=== PATIENT | male | born 1950 | race Caucasian/White ===

== ENCOUNTER 2016-12-30 07:37 | Emergency (ER) | payer BC, MEDICARE ==
[~2016-12-30] VITALS: Ht 177.8 cm; Wt 75.0 kg
[2016-12-30 07:41] VITALS: BP 134/85; PULSE 80; RESP 16; TEMP 97.5; O2SAT 99
[2016-12-30] MEDS ORDERED: ATOR20TA15 PO (07:53)
--- NOTE | 2016-12-30 08:14 | PD ---
HPI Chief Complaint: Abdominal Pain Time Seen by Provider: 07:54 Travel History International Travel<30 days: No Contact w/Intl Traveler<30days: No Traveled to known affect area: No History of Present Illness HPI 66-year-old male presents with left lower quadrant abdominal pain that started acutely at 3:19 AM. He states he was feeling fine before this and it awoke him out of his sleep. He states that he had a kidney stone multiple years ago but with that he had a couple mild episodes of pain and was able to pass it. He states that this one is more constant and has not gone away. Quality pain is comes in waves. Severity is moderate. He denies other concurrent complaints. PFSH Past Medical History High Cholesterol: Yes Kidney Stones: Yes Influenza Vaccination: Yes Past Surgical History Joint Replacement: Yes (bilateral knees, right hip) Social History Alcohol Use: Yes (beer occasional) Tobacco Use: No Substance Use: No Allergies-Medications (Allergen,Severity, Reaction): Coded Allergies: Codeine (Verified Allergy, Severe, Dizziness, 12/30/16) Reported Meds & Prescriptions Reported Meds & Active Scripts Active Reported Atorvastatin (Atorvastatin Calcium) 20 Mg Tab 20 Mg PO DAILY Review of Systems Except as stated in HPI: all other systems reviewed are Neg Physical Exam Narrative GENERAL: Well-nourished, well-developed patient. SKIN: Warm and dry. HEAD: Normocephalic and atraumatic. EYES: No injection or drainage. ENT: No nasal drainage noted. NECK: Supple, trachea midline. CARDIOVASCULAR: Regular rate and rhythm RESPIRATORY: No increased effort. No accessory muscle use. GASTROINTESTINAL: Abdomen soft, non-tender, nondistended. NEUROLOGICAL: Awake and alert. Motor and sensory grossly within normal limits. Normal speech. Data Data Last Documented VS Vital Signs Date Time Temp Pulse Resp B/P Pulse Ox O2 Delivery O2 Flow Rate FiO2 12/30/16 07:41 97.5 80 16 134/85 99 Room Air Orders Complete Blood Count With Diff (12/30/16 07:54) Comprehensive Metabolic Panel (12/30/16 07:54) Urinalysis - C+S If Indicated (12/30/16 07:54) Lipase (12/30/16 07:54) Iv Access Insert/Monitor (12/30/16 07:54) Ct Abd/Pel W/O Iv Contrast (12/30/16 ) Ondansetron Inj (Zofran Inj) (12/30/16 08:15) Ketorolac Inj (Toradol Inj) (12/30/16 08:15) Sodium Chlor 0.9% 1000 Ml Inj (Ns 1000 M (12/30/16 08:15) Labs Laboratory Tests Test 12/30/16 12/30/16 08:05 08:12 Urine Color YELLOW Urine Turbidity HAZY Urine pH 7.0 Urine Specific [place] 1.021 Urine Protein NEG mg/dL Urine Glucose (UA) NEG mg/dL Urine Ketones NEG mg/dL Urine Occult Blood NEG Urine Nitrite NEG Urine Bilirubin NEG Urine Urobilinogen LESS THAN 2.0 MG/DL Urine Leukocyte Esterase NEG Urine RBC LESS THAN 1 /hpf Urine WBC 4 /hpf Urine Amorphous Sediment FEW Urine Bacteria RARE /hpf Microscopic Urinalysis Comment CULT NOT INDICATED White Blood Count 8.2 TH/MM3 Red Blood Count 4.98 MIL/MM3 Hemoglobin 14.5 GM/DL Hematocrit 42.9 % Mean Corpuscular Volume 86.1 FL Mean Corpuscular Hemoglobin 29.0 PG Mean Corpuscular Hemoglobin 33.7 % Concent Red Cell Distribution Width 15.1 % Platelet Count 331 TH/MM3 Mean Platelet Volume 6.9 FL Neutrophils (%) (Auto) 77.5 % Lymphocytes (%) (Auto) 14.6 % Monocytes (%) (Auto) 6.9 % Eosinophils (%) (Auto) 0.6 % Basophils (%) (Auto) 0.4 % Neutrophils # (Auto) 6.3 TH/MM3 Lymphocytes # (Auto) 1.2 TH/MM3 Monocytes # (Auto) 0.6 TH/MM3 Eosinophils # (Auto) 0.0 TH/MM3 Basophils # (Auto) 0.0 TH/MM3 CBC Comment DIFF FINAL Differential Comment Sodium Level 140 MEQ/L Potassium Level 4.8 MEQ/L Chloride Level 105 MEQ/L Carbon Dioxide Level 29.6 MEQ/L Anion Gap 5 MEQ/L Blood Urea Nitrogen 23 MG/DL Creatinine 1.03 MG/DL Estimat Glomerular Filtration 72 ML/MIN Rate Random Glucose 118 MG/DL Calcium Level 9.4 MG/DL Total Bilirubin 0.3 MG/DL Aspartate Amino Transf 19 U/L (AST/SGOT) Alanine Aminotransferase 22 U/L (ALT/SGPT) Alkaline Phosphatase 104 U/L Total Protein 8.1 GM/DL Albumin 3.8 GM/DL Lipase 151 U/L MDM Medical Decision Making Medical Screen Exam Complete: Yes Emergency Medical Condition: Yes Medical Record Reviewed: Yes (past history confirmed) Interpretation(s) CBC & BMP Diagram 12/30/16 08:12 Last 24 hours Impressions Abdomen/Pelvis CT 12/30/16 0000 Signed Impressions: Service Date/Time: Friday, December 30, 2016 08:21 - CONCLUSION: No acute disease. Left renal calculus. Atherosclerosis. Right renal cyst. Lyle Boss MD Differential Diagnosis Kidney stone, pancreatitis, diverticulitis, musculoskeletal Narrative Course Will check blood work, urinalysis, CT scan and dose with IV fluids, Toradol, Zofran and reevaluate ed workup no acute, very lengthy discussion with patient about follow-up care. He states he will call his primary care physician [place] and while he is waiting for that appointment see someone here locally to rule out other nonemergent conditions for his pain. Patient denies any new complaints, Patient happy with care, all questions answered. Patient knows that follow up is incumbent on them and to return to the emergency room immediately if new or worsening symptoms develop. Patient given strict return precautions, vitals reviewed and are normal, agrees to further workup as an outpatient. Diagnosis Primary Impression: Abdominal pain Qualified Code: R10.32 - Left lower quadrant pain Patient Instructions: General Instructions Additional Instructions: tylenol as needed, follow with primary this week, return with any emergent need Med/Other Pt SpecificInfo: No Change to Meds Disposition: 01 DISCHARGE HOME Condition: Stable Lorraine Henderson MD Dec 30, 2016 08:14 Lorraine Henderson MD Dec 30, 2016 08:14
[2016-12-30] MEDS ORDERED: ONDANSETRON HCL 4 MG/2 ML VIAL IV PUSH ONE (08:15)
[2016-12-30] MEDS ORDERED: SODIUM CHLOR 0.9% 1000 ML INJ 1,000 ML IV ONE (08:15)
[2016-12-30] MEDS ORDERED: KETOROLAC TROMETHAMINE 30 MG/ML (IVP) VIAL IV PUSH ONE (08:15)
[2016-12-30 08:26] LABS: AUTOMATED NEUTROPHIL # 6.3 TH/MM3 (1.8-7.7); BASOPHIL % 0.4 % (0.0-2.0); EOSINOPHIL % 0.6 % (0.0-4.0); HEMATOCRIT 42.9 % (39.0-51.0); HEMO FLAGS DIFF FINAL; LYMPH % 14.6 % (9.0-44.0); LYMPHOCYTE # 1.2 TH/MM3 (1.0-4.8); MEAN CELL VOLUME 86.1 FL (80.0-100.0); MEAN CORPUSCULAR HGB CONC 33.7 % (32.0-36.0); MONO % 6.9 % (0.0-8.0); NEUT % 77.5 % (16.0-70.0); PLATELET COUNT 331 TH/MM3 (150-450); RED BLOOD COUNT 4.98 MIL/MM3 (4.50-5.90); RED CELL DISTRIBUTION WIDTH 15.1 % (11.6-17.2); WHITE BLOOD COUNT 8.2 TH/MM3 (4.0-11.0)
[2016-12-30 08:31] LABS: BACTERIA, URINE RARE /hpf; BLOOD, URINE NEG (NEG); GLUCOSE,URINE NEG (NEG); KETONE, URINE NEG (NEG); NITRITE,URINE NEG (NEG); URINE COLOR YELLOW (YELLW/STRAW)
[2016-12-30 08:38] LABS: COMMENT (UR) CULT NOT INDICATED; CULTURE IF INDICATED CULT NOT INDICATED
[2016-12-30 08:43] LABS: ANION GAP 5 MEQ/L (5-15); AST (GOT) 19 U/L (15-37); BICARBONATE 29.6 MEQ/L (21.0-32.0); BLOOD UREA NITROGEN 23 MG/DL (7-18); CHLORIDE 105 MEQ/L (98-107); GLOMERULAR FILTRATION RATE 72 ML/MIN (>89); POTASSIUM 4.8 MEQ/L (3.5-5.1); SODIUM (NA) 140 MEQ/L (136-145)
[2016-12-30 08:46] LABS: ALKALINE PHOSPHATASE 104 U/L (45-117); ALT (GPT) 22 U/L (12-78); TOTAL BILIRUBIN ADULT 0.3 MG/DL (0.2-1.0)
--- NOTE | 2016-12-30 09:15 | RADRPT ---
EXAM DATE/TIME: 12/30/2016 08:21 [facility] COMPARISON: No previous studies available for comparison. INDICATIONS : Left lower quadrant pain, nausea. ORAL CONTRAST: No oral contrast ingested. RADIATION DOSE: 13.35 CTDIvol (mGy) MEDICAL HISTORY : Renal calculi. SURGICAL HISTORY : Right total hip replacement. ENCOUNTER: Initial ACUITY: 1 day PAIN SCALE: 5/10 LOCATION: Left lower quadrant TECHNIQUE: Volumetric scanning of the abdomen and pelvis was performed. Using automated exposure control and ad justment of the mA and/or kV according to patient size, radiation dose was kept as low as reasonably achievable to obtain optimal diagnostic quality images. FINDINGS: There are calcified granulomas in the spleen. Liver, gallbladder, adrenal glands, stomach unremarkabl e. There is a simple exophytic cyst at the lower pole of the right kidney measuring 2.1 cm. There is a nonobstructing calculus at the mid to lower pole of left kidney measuring 4 mm on image 46. There i s no hydronephrosis. Right total hip arthroplasty is noted with associated streak artifact. Visualize d portions of the urinary bladder, seminal vesicles are unremarkable. Prostatic calcifications are no joe. There is no evidence of bowel obstruction. There is no adenopathy or aneurysm. No inflammatory c hanges are seen. Atherosclerotic calcifications of the aorta and iliac vessels are noted. There is se beatrice multilevel degenerative disc disease of the lumbar spine with mild levoscoliosis. Lung bases are clear. CONCLUSION: No acute disease. Left renal calculus. Atherosclerosis. Right renal cyst. Lyle Boss MD on December 30, 2016 at 9:11 Board Certified Radiologist. This report was verified electronically.
== END 2016-12-30 10:23 | disposition home or self-care (01) ==
LOC: NEPC 07:37
DX: R10.32 Left lower quadrant pain (principal); E78.00 Pure hypercholesterolemia, unspecified; Z87.442 Personal history of urinary calculi
CPT/HCPCS: 74176; 80053; 81001; 83690; 85025; 96361; 96374; 96375; 99284; J1885; J2405; J7030